=== PATIENT | female | born 1975 | race Two or more races ===

== ENCOUNTER → 2022-08-01 | Outpatient (CLI) | payer BC ==
[2022-08-01 08:00] LABS: Basophils # (auto) 0 10 ^3/uL (0-0.2); Basophils % (auto) 0.8 % (0.0-2.0); Eosinophils # (auto) 0.1 10 ^3/uL (0-0.8); Eosinophils % (auto) 2.4 % (0.0-7.0); Hematocrit 41.3 % (36.0-46.0); Hemoglobin 14.1 g/dL (12.2-16.2); Lymphocytes # (auto) 1.3 10 ^3/uL (0.4-5.4); Lymphocytes % (auto) 31.5 % (10.0-50.0); Mean Corpuscular Hemoglobin 32.1 pg (28.0-32.0); Mean Corpuscular Hgb Conc. 34.1 g/dL (32.0-36.0); Mean Corpuscular Volume 94.2 fL (80.0-100.0); Monocytes # (auto) 0.3 10 ^3/uL (0-1.3); Monocytes % (auto) 7.5 % (0.0-12.0); Neutrophils # (auto) 2.4 10 ^3/uL (1.6-8.6); Neutrophils % (auto) 57.8 % (37.0-80.0); Red Blood Cells 4.38 10^6/uL (4.0-5.20); Red Cell Distribution Width 12.8 % (11.8-14.3); White Blood Cell 4.2 10^3/uL (4.4-10.8)
[2022-08-01 08:03] LABS: Urine Bacteria NONE SEEN /hpf (None Seen); Urine Blood Negative /uL (Negative); Urine WBC 1 /hpf (0 - 5)
[2022-08-01 09:06] LABS: Ferritin 46.6 ng/mL (10-322); Free T3 2.92 pg/mL (2.3-4.2); Free T4 (Free Thyroxine) 0.99 ng/dL (0.89-1.76)
[2022-08-01 09:07] LABS: Follicle Stimulating Hormone 24.15 IU/L (SEE BELOW)
[2022-08-01 09:15] LABS: Albumin 3.7 g/dL (3.4-5.0); BUN/Creatinine Ratio 21.2 (10.0-20.0); Bilirubin, Total 0.5 mg/dL (0.2-1.0); CRP High Sensitivity 0.11 mg/dL (< 0.3); Calcium 9.1 mg/dL (8.5-10.1); Potassium 4.1 mmol/L (3.5-5.1)
== END | disposition home or self-care (01) ==
LOC: LAB 07:23
PROVIDERS: ATTEND Internal Medicine
DX: R53.83 Other fatigue (principal); E03.9 Hypothyroidism, unspecified; E06.3 Autoimmune thyroiditis; F51.01 Primary insomnia; K21.9 Gastro-esophageal reflux disease without esophagitis; K90.0 Celiac disease; F51.04 Psychophysiologic insomnia; N60.19 Diffuse cystic mastopathy of unspecified breast; R63.5 Abnormal weight gain; Z90.710 Acquired absence of both cervix and uterus
CPT/HCPCS: 36415; 80053; 80061; 81001; 82306; 82533; 82607; 82626; 82670; 82728; 83001; 83036; 83090; 83525; 83825; 84144; 84402; 84403; 84439; 84443; 84481; 85025; 86141; 86376

== ENCOUNTER → 2023-06-04 | Outpatient (CLI) | payer BC ==
[2023-06-04 09:15] LABS: Urine Epithelial Cast None Seen /hpf (<5)
[2023-06-04 09:33] LABS: Urine Bacteria NONE SEEN /hpf (None Seen); Urine Blood Negative /uL (Negative); Urine Clarity Clear (Clear); Urine Protein, UAD Negative (Negative); Urine Specific Gravity 1.004 (1.001-1.035); Urine Sperm PRESENT /hpf (None Seen); Urine Urobilinogen Normal (Negative); Urine WBC <1 /hpf (0 - 5)
[2023-06-04 09:36] LABS: Basophils # (auto) 0 10 ^3/uL (0-0.2); Basophils % (auto) 0.8 % (0.0-2.0); Eosinophils # (auto) 0.2 10 ^3/uL (0-0.8); Eosinophils % (auto) 3.6 % (0.0-7.0); Hematocrit 43.1 % (36.0-46.0); Hemoglobin 14.5 g/dL (12.2-16.2); Lymphocytes # (auto) 1.9 10 ^3/uL (0.4-5.4); Lymphocytes % (auto) 35.2 % (10.0-50.0); Mean Corpuscular Hemoglobin 32.5 pg (28.0-32.0); Mean Corpuscular Hgb Conc. 33.7 g/dL (32.0-36.0); Mean Corpuscular Volume 96.6 fL (80.0-100.0); Monocytes # (auto) 0.4 10 ^3/uL (0-1.3); Monocytes % (auto) 7.9 % (0.0-12.0); Neutrophils # (auto) 2.9 10 ^3/uL (1.6-8.6); Neutrophils % (auto) 52.5 % (37.0-80.0); Nucleated Red Blood Cells % 0.2 %; Red Blood Cells 4.47 10^6/uL (4.0-5.20); Red Cell Distribution Width 13.3 % (11.8-14.3); White Blood Cell 5.5 10^3/uL (4.4-10.8)
[2023-06-04 09:44] LABS: Alanine Aminotransferase 24 U/L (7-40); Albumin 4.7 g/dL (3.2-4.8); Alkaline Phosphatase 74 U/L (46-116); Calcium 10.1 mg/dL (8.5-10.1); Carbon Dioxide 30 mmol/L (20-30); Chloride 102 mmol/L (98-107); Triglycerides 99 mg/dL (< 150)
[2023-06-04 09:45] LABS: Anion Gap 6 (5-15); Aspartate Aminotransferase 23 U/L (13-40); BUN/Creatinine Ratio 10.3 (10.0-20.0); Bilirubin, Total 0.5 mg/dL (0.2-1.0); Blood Urea Nitrogen 9 mg/dL (9-23); CRP High Sensitivity 0.04 mg/dL (<1.0); Cholesterol 153 mg/dL (< 200); Glucose 74 mg/dL (74-106); HDL Cholesterol 77 mg/dL (40-59); LDL Cholesterol 60 mg/dL (< 100); Potassium 3.6 mmol/L (3.5-5.1); Sodium 138 mmol/L (136-145); Total Protein 7.2 g/dL (5.7-8.2)
[2023-06-04 09:55] LABS: Urine Color Straw (Yellow)
[2023-06-04 13:48] LABS: Follicle Stimulating Hormone 24.38 IU/L (SEE BELOW)
[2023-06-04 13:49] LABS: Ferritin 49.2 ng/mL (10-291); Free T4 (Free Thyroxine) 1.26 ng/dL (0.89-1.76)
[2023-06-04 13:51] LABS: Free T3 3.29 pg/mL (2.3-4.2)
[2023-06-05 08:06] LABS: Insulin 4.9 uIU/mL (2.6-24.9)
== END | disposition home or self-care (01) ==
LOC: LAB 08:32
DX: N95.1 Menopausal and female climacteric states (principal); R53.83 Other fatigue; E06.3 Autoimmune thyroiditis; F51.01 Primary insomnia; Z90.710 Acquired absence of both cervix and uterus
CPT/HCPCS: 36415; 80053; 80061; 81001; 82306; 82533; 82607; 82626; 82670; 82728; 83001; 83036; 83090; 83525; 83825; 84144; 84402; 84403; 84439; 84443; 84481; 85025; 86141; 86376

== ENCOUNTER → 2023-06-27 | Outpatient (CLI) | payer BC ==
[2023-06-27 11:23] LABS: Alanine Aminotransferase 23 U/L (7-40); Alkaline Phosphatase 76 U/L (46-116); Anion Gap 6 (5-15); Calcium 9.1 mg/dL (8.5-10.1); Carbon Dioxide 27 mmol/L (20-30); Chloride 106 mmol/L (98-107); Potassium 4.1 mmol/L (3.5-5.1); Sodium 139 mmol/L (136-145)
[2023-06-27 11:24] LABS: Glucose 91 mg/dL (74-106)
[2023-06-27 11:25] LABS: Blood Urea Nitrogen 7 mg/dL (9-23)
[2023-06-27 11:26] LABS: Albumin 4.1 g/dL (3.2-4.8); Aspartate Aminotransferase 23 U/L (13-40)
[2023-06-27 11:27] LABS: Bilirubin, Total 0.4 mg/dL (0.2-1.0); Total Protein 5.9 g/dL (5.7-8.2)
== END | disposition home or self-care (01) ==
LOC: LAB 10:47
PROVIDERS: ATTEND Anesthesiology
DX: N95.1 Menopausal and female climacteric states (principal); F51.01 Primary insomnia; R53.83 Other fatigue; E66.9 Obesity, unspecified; Z90.710 Acquired absence of both cervix and uterus
CPT/HCPCS: 36415; 80053

== ENCOUNTER → 2023-11-11 | Outpatient (CLI) | payer BC ==
[2023-11-11 13:18] LABS: Basophils # (auto) 0 10 ^3/uL (0-0.2); Basophils % (auto) 0.5 % (0.0-2.0); Eosinophils # (auto) 0.1 10 ^3/uL (0-0.8); Eosinophils % (auto) 0.9 % (0.0-7.0); Hematocrit 40.1 % (36.0-46.0); Hemoglobin 13.5 g/dL (12.2-16.2); Lymphocytes # (auto) 1.4 10 ^3/uL (0.4-5.4); Lymphocytes % (auto) 18.4 % (10.0-50.0); Mean Corpuscular Hemoglobin 32.3 pg (28.0-32.0); Mean Corpuscular Hgb Conc. 33.8 g/dL (32.0-36.0); Mean Corpuscular Volume 95.6 fL (80.0-100.0); Monocytes # (auto) 0.5 10 ^3/uL (0-1.3); Monocytes % (auto) 6.5 % (0.0-12.0); Neutrophils # (auto) 5.4 10 ^3/uL (1.6-8.6); Neutrophils % (auto) 73.7 % (37.0-80.0); Red Blood Cells 4.19 10^6/uL (4.0-5.20); Red Cell Distribution Width 12.6 % (11.8-14.3); White Blood Cell 7.4 10^3/uL (4.4-10.8)
[2023-11-11 13:29] LABS: Urine Bacteria FEW /hpf (None Seen); Urine Blood Negative /uL (Negative); Urine Clarity Clear (Clear); Urine Color Light-Yellow (Yellow); Urine Protein, UAD Negative (Negative); Urine Urobilinogen Normal (Negative); Urine WBC 1 /hpf (0 - 5); Urine pH 6.5 (5.0-9.0)
[2023-11-11 13:54] LABS: Alanine Aminotransferase 22 U/L (7-40); Albumin 4.4 g/dL (3.2-4.8); Alkaline Phosphatase 78 U/L (46-116); Anion Gap 5 (5-15); Aspartate Aminotransferase 17 U/L (13-40); BUN/Creatinine Ratio 12.2 (10.0-20.0); Blood Urea Nitrogen 11 mg/dL (9-23); Calcium 9.3 mg/dL (8.5-10.1); Carbon Dioxide 29 mmol/L (20-30); Chloride 105 mmol/L (98-107); Glucose 111 mg/dL (74-106); Potassium 4.5 mmol/L (3.5-5.1); Sodium 139 mmol/L (136-145)
[2023-11-11 13:55] LABS: Bilirubin, Total 0.4 mg/dL (0.2-1.0); Total Protein 6.6 g/dL (5.7-8.2)
== END | disposition home or self-care (01) ==
LOC: LAB 13:08
PROVIDERS: ATTEND Nurse Practitioner
DX: R53.83 Other fatigue (principal)
CPT/HCPCS: 36415; 80053; 81001; 85025; 87086

== ENCOUNTER → 2024-05-21 | Outpatient (CLI) | payer BC ==
[2024-05-21 08:31] LABS: Urine Bacteria None Seen /hpf (None Seen)
[2024-05-21 08:39] LABS: Basophils # (auto) 0 10 ^3/uL (0-0.2); Basophils % (auto) 0.9 % (0.0-2.0); Eosinophils # (auto) 0.1 10 ^3/uL (0-0.8); Eosinophils % (auto) 1.7 % (0.0-7.0); Hematocrit 42.4 % (36.0-46.0); Hemoglobin 14.3 g/dL (12.2-16.2); Lymphocytes # (auto) 1.1 10 ^3/uL (0.4-5.4); Lymphocytes % (auto) 26.4 % (10.0-50.0); Mean Corpuscular Hemoglobin 31.5 pg (28.0-32.0); Mean Corpuscular Hgb Conc. 33.6 g/dL (32.0-36.0); Mean Corpuscular Volume 93.5 fL (80.0-100.0); Monocytes # (auto) 0.3 10 ^3/uL (0-1.3); Monocytes % (auto) 7.5 % (0.0-12.0); Neutrophils # (auto) 2.6 10 ^3/uL (1.6-8.6); Neutrophils % (auto) 63.5 % (37.0-80.0); Nucleated Red Blood Cells % 0.2 %; Platelet Count (auto) 220 10^3/uL (140-450); Red Blood Cells 4.53 10^6/uL (4.0-5.20); Red Cell Distribution Width 13.1 % (11.8-14.3)
[2024-05-21 09:02] LABS: Alanine Aminotransferase 24 U/L (7-40); Albumin 4.3 g/dL (3.2-4.8); Alkaline Phosphatase 92 U/L (46-116); Anion Gap 6 (5-15); Aspartate Aminotransferase 23 U/L (13-40); BUN/Creatinine Ratio 15.9 (10.0-20.0); Bilirubin, Total 0.5 mg/dL (0.2-1.0); Blood Urea Nitrogen 13 mg/dL (9-23); CRP High Sensitivity 0.04 mg/dL (<1.0); Calcium 9.7 mg/dL (8.7-10.4); Carbon Dioxide 29 mmol/L (20-31); Chloride 104 mmol/L (98-107); Cholesterol 150 mg/dL (< 200); Glucose 82 mg/dL (74-106); LDL Cholesterol 66 mg/dL (< 100); Potassium 3.9 mmol/L (3.5-5.1); Sodium 139 mmol/L (136-145); Total Protein 6.6 g/dL (5.7-8.2); Triglycerides 52 mg/dL (< 150)
[2024-05-21 09:10] LABS: HDL Cholesterol 75 mg/dL (40-59)
[2024-05-21 09:38] LABS: Urine Blood Negative /uL (Negative); Urine Clarity Clear (Clear); Urine Color Yellow (Yellow); Urine Protein, UAD Negative (Negative); Urine Specific Gravity 1.016 (1.001-1.035); Urine Squamous Epithelial Cell FEW /hpf (<5); Urine Urobilinogen Normal (Negative); Urine WBC <1 /hpf (0 - 5); Urine pH 6.5 (5.0-9.0)
[2024-05-21 10:57] LABS: Follicle Stimulating Hormone 28.71 IU/L (SEE BELOW); Free T3 3.28 pg/mL (2.3-4.2)
[2024-05-21 10:58] LABS: Ferritin 25.9 ng/mL (10-291); Free T4 (Free Thyroxine) 1.03 ng/dL (0.89-1.76)
[2024-05-22 06:06] LABS: Insulin 4.7 uIU/mL (2.6-24.9)
[2024-05-22 07:06] LABS: Homocyst(e)ine 9.8 umol/L (0.0-14.5); Testosterone 32 ng/dL (4-50); Thyroid Peroxidase (TPO) Ab 42 IU/mL (0-34)
[2024-05-25 11:06] LABS: Free Testosterone(Direct) <0.2 pg/mL (0.0-4.2)
== END | disposition home or self-care (01) ==
LOC: LAB 08:12
DX: K21.9 Gastro-esophageal reflux disease without esophagitis (principal); E06.3 Autoimmune thyroiditis; K90.0 Celiac disease; F51.01 Primary insomnia; N60.19 Diffuse cystic mastopathy of unspecified breast; N95.1 Menopausal and female climacteric states; R53.83 Other fatigue; R63.5 Abnormal weight gain; Z90.710 Acquired absence of both cervix and uterus; F51.04 Psychophysiologic insomnia
CPT/HCPCS: 36415; 80053; 80061; 81001; 82306; 82533; 82607; 82626; 82670; 82728; 83001; 83036; 83090; 83525; 83825; 84144; 84402; 84403; 84439; 84443; 84481; 85025; 86141; 86376

== ENCOUNTER → 2025-03-24 | Outpatient (CLI) | payer BC ==
[2025-03-24 13:03] LABS: Hematocrit 41.1 % (36.0-46.0); Hemoglobin 13.8 g/dL (12.2-16.2); Mean Corpuscular Hemoglobin 31.3 pg (28.0-32.0); Mean Corpuscular Volume 93.5 fL (80.0-100.0); Nucleated Red Blood Cells % 0.0 %
[2025-03-24 13:34] LABS: Alanine Aminotransferase 21 U/L (7-40); Albumin 4.0 g/dL (3.2-4.8); Alkaline Phosphatase 76 U/L (46-116); Anion Gap 10 (5-15); BUN/Creatinine Ratio 9.5 (10.0-20.0); Carbon Dioxide 27 mmol/L (20-31); Chloride 106 mmol/L (98-107); Magnesium 1.8 mg/dL (1.6-2.6); Potassium 4.2 mmol/L (3.5-5.1); Sodium 143 mmol/L (136-145); Total Protein 6.4 g/dL (5.7-8.2)
[2025-03-24 13:38] LABS: Bilirubin, Total 0.2 mg/dL (0.2-1.0); Blood Urea Nitrogen 8 mg/dL (9-23); Calcium 8.6 mg/dL (8.7-10.4); Glucose 140 mg/dL (74-106)
== END | disposition home or self-care (01) ==
LOC: LAB 12:26
PROVIDERS: ATTEND Anesthesiology
DX: E03.9 Hypothyroidism, unspecified (principal); R07.9 Chest pain, unspecified
CPT/HCPCS: 36415; 80053; 83735; 84443; 85025

== ENCOUNTER → 2025-04-05 | Outpatient (CLI) | payer BC ==
[~2025-04-05] VITALS: Ht 172.7 cm; Wt 79.4 kg
[~2025-04-05] MED LIST: REGADENOSON 0.4 MG/5 ML SYRG IV ONE
--- NOTE | 2025-04-05 11:58 | DVHCARD ---
Cardiology Stress Test [place] Treadmill Stress Test [place] Referring MD: MD Fredrick Protocol: Robert (with cardiolite) Reason for referral: Other (Palpitations) Target heart Rate:@85%: 144 Percent MPHR: 170 METS: 10.10 Resting Heart rate: 68 Resting Blood Pressure: 131/81 Exercise Heart Rate: 166 Exercise Blood Pressure: 172/73 Reason for Termination of Test: Completion of Protocol Baseline EKG: NSR Stress EKG: Sinus tachycardia w/o evident ST-T wave segment changes Functional Capacity: Good Normal Heart Rate Response: Adequate Blood Pressure Response: Hypertensive Clinical response: Non-ischemic Arrhythmia?: No Cardiolite Injected?: Yes ST-T Changes: Non/Minimal Probability of Inducible Ische: Perfusion result pending Comments: Uneventful Robert protocol Date of Service: Apr 05, 2025 Billing Provider: BRYNN JIMENEZ Cardiology Common Codes: PROCEDURE ONLY Treadmill W/Cardiolite Nuclear: [id number], INTERP, RPT BRYNN JIMENEZ Apr 05, 2025 11:58
--- NOTE | 2025-04-08 14:16 | DVHSR ---
APPROVED REPORT Exam: Nuclear Stress Test BMI: 0 Stress Test Details Stress Test: Exercise stress testing was performed using a Robert protocol. HR Resting HR: 68 bpm Max Heart Rate (APMHR): 170.482366 bpm Max HR Achieved: 166 bpm Target HR (85% APMHR): 144.994372 bpm % of APMHR: 97.65 Recovery HR: 79 bpm BP Resting BP: 131/81 mmHg Recovery BP: 146/96 mmHg ECG Resting ECG: Sinus Rhythm Clinical Reason for Termination: Completed protocol Exercise duration: 9 min sec Nurse Comments -Recieved ambulatory, A/Ox4 on RA, connected to quality assurance monitor chassis, VS stable. PIV S/L flushes well, reviewed POC, pt verbalized understanding. Nakul SUPER[employer]ISTING [employer] here to monitor exam. Nuc Med tech here to inject cardiolyte. Treadmill test performed per protocol. Pt stable, tolerated well, VS returned to baseline. Pt to follow up with industrial maintenance manager for results. Stress ECG Conclusion lvef 72% normal perfusion scan NM EXAM: Myocardial Perfusion REST/STRESS Imaging Protocol: Rest Tc-99m/Stress Tc-99m 1 day Resting Data Rest SPECT myocardial perfusion imaging was performed in supine position 45 minutes following the intravenous injection of 10.6 mCi of Tc-99m Sestamibi. Time of rest injection: 10:30 Date: 04/05/2025 Time of rest imagin:15 Date: 04/05/2025 Administration Route: IV Administration Site: Left Hand Exercise Stress At peak stress, the patient was injected intravenously with 30.8mCi of Tc-99m Sestamibi. Time of stress injection: 11:45 Date: 04/05/2025 Time of stress imagin:45 Date: 04/05/2025 Administration Route: IV Administration Site: Left Hand Gated Stress SPECT was performed 60 minutes after stress injection. The images were gated to evaluate regional wall motion and calculate left ventricular ejection fraction. Stress only was performed in the Supine position. Nuclear Conclusion Nuclear Findings: negative for ischemia lvef 72% normal perfusion scan
== END | disposition home or self-care (01) ==
LOC: XYW 09:27
PROVIDERS: ATTEND Internal Medicine
DX: I49.9 Cardiac arrhythmia, unspecified (principal); R00.2 Palpitations
CPT/HCPCS: 78452; 93017; A9500